=== PATIENT | female | born 1950 | race Caucasian/White ===

== ENCOUNTER 2019-12-08 07:48 | Inpatient (IN) | payer MEDICARE, OTHER, SELFPAY ==
--- NOTE | ~2019-12-08 | XR_ITS ---
EXAMINATION: XR foot LT min 3V EXAM DATE: 12/08/2019 08:37 INDICATION: Left toe infection. Surgery 2 weeks ago. TECHNIQUE: Left foot dorsoplantar, lateral and oblique projections obtained and reviewed. Comparison is made to prior examination from 11/09/2019. FINDINGS: There is surgical arthrodesis of the left first digit. One of the 2 previously seen screws traversing the left first interphalangeal joint has been removed, with persistent lucency within its tract, and also surrounding the other screw (screw tip? Its possible portion of this has been removed ). The plate bridging left first metatarsophalangeal joint is intact, and no focal lucency surrounding t he supporting screws of this fusion. Generalized osteopenia along the proximal phalangeal bases. [employer] sahil second-fifth metatarsal head deformities which could be sequela from avascular necrosis, or possi david surgical at the fifth metatarsal bone, clinical correlation. There are no acute fractures identif ied. There is probably some swelling over the left first toe, but no emphysema. Mid and hindfoot are unremarkable. IMPRESSION: 1. Persistent lucency surrounding remaining screw or screw tip bridging the left first distal interp halangeal joint could be sequela from osteomyelitis. 2. Interval removal of the other screw bridging this joint with persistent lucency in its tract. 3. Intact arthrodesis left first MTP joint with some generalized osteopenia but no definite focal criss cency surrounding supporting screws. 4. 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 Reviewed, dictated and finalized at location B. IMPRESSION: 1. Persistent lucency surrounding remaining screw or screw tip bridging the le ft first distal interphalangeal joint could be sequela from osteomyelitis. 2. Interval removal of the other screw bridging this joint with persistent evonne ency in its tract. 3. Intact arthrodesis left first MTP joint with some generalized osteopenia bu t no definite focal lucency surrounding supporting screws. 4. Second-fifth metatarsal head deformities likely chronic avascular necrosis and/or possibly surgical change at the fifth metatarsal.
[2019-12-08 07:58] VITALS: BP 141/65; PULSE 84; RESP 20; TEMP 36.8; O2SAT 98
--- NOTE | 2019-12-08 08:24 | ED.LOWEXIN ---
HPI - Extremity Injury (Lower) General Chief Complaint: Extremity Injury, Lower Stated Complaint: Dr Diane sent for IV antibiotics Time Seen by Provider: 12/08/19 08:23 Source: patient and RN notes reviewed Mode of arrival: other Limitations: no limitations History of Present Illness HPI Narrative: Pt is a 69 y/o female who presents to the ED with c/o left great toe swelling with pain that began in August [address] Diane. She notes that her pain and swelling has worsened the past 2.5 weeks after having the screw taken out of her toe. Pt rates her pain as a 7/10 and describes her pain as aching and burning. Her pain radiates to her ankle. She has been taking Tylenol #3, but with minimal relief of her sx. She states that her pain is worsened with exertion and walking. Pt notes that she had surgery to straight her left great toe. Pt had two rounds of abx and she was started on Augmentin yesterday. Pt saw Dr. Diane yesterday in office. Pt was recommended to come to the ED by Dr. Diane to receive IV abx. Pt denies N/V/D, chills, fever, and calf swelling. complaint: other (toe swelling) Onset (ago): month(s) (3) Severity scale (1-10): 7 Relieving factors: other (minimally with Tylenol #3) Exacerbating factors: other (exertion, movement) Context: other (recent surgery) Associated symptoms: swelling and ambulatory Other symptoms: none Related Data Home Medications Medication Instructions Recorded Confirmed calcium carbonate 500 mg (1,250 1 tablet PO DAILY 08/31/19 12/08/19 mg)-vitamin D3 200 unit tablet leflunomide 10 mg tablet 10 mg PO EVERY OTHER DAY 08/31/19 12/08/19 methotrexate sodium 2.5 mg tablet 12.5 mg PO WEEKLY 08/31/19 12/08/19 amitriptyline 25 mg PO HS 09/03/19 12/08/19 ascorbic acid (vitamin C) [Vitamin 1 g PO DAILY 09/03/19 12/08/19 C] cyanocobalamin (vitamin B-12) 1,000 mcg PO DAILY 09/03/19 12/08/19 fenofibrate nanocrystallized 145 mg PO DAILY 09/03/19 12/08/19 [Tricor] folic acid 0.5 mg PO DAILY 09/03/19 12/08/19 metaxalone [Skelaxin] 800 mg PO TID PRN 09/03/19 12/08/19 omeprazole 40 mg PO BID 09/03/19 12/08/19 Allergies Allergy/AdvReac Type Severity Reaction Status Date / Time adhesive tape Allergy Severe BLISTERS Verified 12/07/19 13:05 morphine Allergy Severe IV BURNING Verified 12/07/19 13:05 AND RED STREAK UP ARM cefprozil Allergy Unknown Hives Verified 12/07/19 13:05 levofloxacin Allergy Unknown Hives Verified 12/07/19 13:05 meperidine Allergy Unknown Nausea and Verified 12/07/19 13:05 Vomiting nitrofurantoin Allergy Unknown Hives Verified 12/07/19 13:05 VIOXIN Allergy Severe HIVES Uncoded 12/07/19 13:05 Review of Systems Review of Systems: All systems reviewed & are unremarkable except as noted in HPI and below Constitutional: Constitutional: Denies chills and Denies fever(s) Cardiovascular: Cardiovascular: Denies leg edema Gastrointestinal: Gastrointestinal: Denies diarrhea, Denies nausea and Denies vomiting Musculoskeletal: Musculoskeletal: Reports other (left great toe swelling and pain that radiates to her left ankle) PMFSH Past Medical History Medical History (Updated 12/08/19 @ 13:15 by Yancy Conn MD) Aftercare following surgery of the musculoskeletal system Anemia Bilateral knee pain Cataracts, bilateral Cellulitis of left foot Chronic back pain Chronic narcotic use TYLENOL WITH CODEINE X 6 YRS Degenerative joint disease of knee Gastroesophageal reflux disease Hypercholesterolemia Kidney stone Left hallux osteomyelitis Painful orthopaedic hardware Restless leg syndrome Rheumatoid arthritis Scoliosis Seasonal allergies Surgical History Surgical History (Updated 12/08/19 @ 08:42 by Marcella Bui) H/O section H/O colonoscopy History of bunionectomy of right great toe History of orthopedic surgery right foot Hx of cataract removal with insertion of prosthetic lens Family History Family History (Updated 0
[2019-12-08 08:59] LABS: Basophils Percent Auto 0.6 % (0.2-1.2); Eosinophils Absolute Auto 0.1 K/mm3 (0-0.3); Eosinophils Percent Auto 2.9 % (0-4.4); Hematocrit 35.5 % (37.0-47.0); Hemoglobin 11.5 g/dL (12.0-15.0); Lymphocytes Absolute Auto 0.56 K/mm3 (0.9-3.2); Mean Corpuscular HGB Conc 32.4 g/dl (32-36); Mean Corpuscular Hemoglobin 32.6 pg (26-34); Mean Corpuscular Volume 100.6 fl (80-100); Mean Platelet Volume 8.8 fl (7.4-10.4); Monocytes Absolute Auto 0.3 K/mm3 (0.1-0.6); Monocytes Percent Auto 9.6 % (2.6-8.5); Neutrophils Absolute Auto 2.1 K/mm3 (1.3-6.7); Neutrophils Percent Auto 68.9 % (45.5-73.1); Platelet Count Result 230 k/mm3 (150-375); Red Blood Count 3.53 M/mm3 (4.2-5.4); Red Cell Distribution Width 14.1 % (11.5-14.5); White Blood Count 3.1 K/mm3 (4.5-10.0)
[2019-12-08 09:14] LABS: Blood Urea Nitrogen 22 mg/dL (7-17); CRP 2.2 mg/dL (<1.0); Calcium 9.3 mg/dL (8.4-10.2); Carbon Dioxide 28 mmol/L (22-30); Chloride 100 mmol/L (98-107); Estimated CRCL calculation 47 ml/min; Estimated Glomerular Filt Rate > 60; Glucose 86 mg/dL (65-105); Potassium 4.4 mmol/L (3.4-5.0); Sodium 135 mmol/L (137-145)
[2019-12-08 09:34] LABS: Erythrocyte Sedimentation Rate 58 mm/hr (0-20)
[2019-12-08 11:25] VITALS: BP 130/58; PULSE 75; RESP 16; TEMP 36.7; O2SAT 100
[2019-12-08 11:47] VITALS: BMI 23.1
--- NOTE | 2019-12-08 12:14 | ADMGEN ---
This patient, Ale Ramos, was admitted to [facility] Surg Room 316-01 @ 1122. Patient/family oriented to hospital policies and general routines including ID bracelet, bed and alarms, visiting hours, pain management, procedures, bathroom and other care routines, personal items, smoking policy, room service/diet, and visiting hours. Valuables list has been completed. Information on how to activate the Rapid Response Team has been discussed. Patient/Family are encouraged to report perceived risks to care and to ask questions if they do not understand what they are told or what they should do.
[2019-12-08 14:00] VITALS: BP 131/62; PULSE 70; RESP 16; TEMP 36.7; O2SAT 100
--- NOTE | 2019-12-08 15:00 | PM.IMHP ---
H&P: HPI History of Present Illness Chief complaint: Left 1st toe swelling and pain. Narrative: Ale Ramos is a 69-year-old female with rheumatoid arthritis on immunosuppressants who presented to the emergency department earlier this morning from home for evaluation of left great toe swelling and pain. She is status post left hallux interphalangeal joint arthrodesis secondary to rheumatoid deformity 09/09/[address] Diane. She developed postoperative complications including wound dehiscence followed by painful hardware. Approximately 3 weeks ago, some hardware was removed from the left hallux, and more recently she has been having swelling at the site. She was seen by Dr. Diane in the office yesterday, and he wished to admit her for IV antibiotics given edema and erythema however she did decline. She was given a prescription for Augmentin, which she has taken 2 doses, but decided that she should probably come in today for IV antibiotics. She has a constant aching discomfort about the left great toe, radiating somewhat on to the dorsum of the foot. Other than that, she has no complaints and specifically denies fever, chills, sweats, nausea, and vomiting. She has no history of multidrug resistant organisms. Review of Systems Review of Systems: Narrative: Twelve systems were reviewed with pertinent positives and negatives as per HPI. No fever, chills, or sweats. No recent cold or flu symptoms. She denies chest pain shortness of breath. No nausea or vomiting. No diarrhea or dysuria. No history of venous thromboembolism. Except as documented, all other systems were reviewed and are negative. [facility] Past Medical History Medical History Anemia Bilateral knee pain Status post Euflexxa injections in August 2019. Chronic back pain Chronic narcotic use Tylenol with codeine for the past 6 years. Chronic pain syndrome Secondary to rheumatoid arthritis, on long-term opioid therapy with Tylenol with codeine. Degenerative joint disease of knee Gastroesophageal reflux disease History of shingles 2013. Hypercholesterolemia Kidney stone Left hallux osteomyelitis Restless leg syndrome Rheumatoid arthritis Scoliosis Seasonal allergies Surgical History Surgical History H/O section 1984. H/O colonoscopy History of bladder suspension procedure History of bunionectomy of right great toe 2002. History of orthopedic surgery 1: Rheumatoid forefoot reconstruction, right foot with right hallux metatarsophalangeal arthrodesis 07/08/2013. 2: Rheumatoid forefoot reconstruction of the left foot 08/10/2015. 3: Left hallux interphalangeal arthrodesis 09/16/2019. Hx of cataract removal with insertion of prosthetic lens Family History Family History Mother Diabetes mellitus TIA (transient ischemic attack) Father Diabetes mellitus Skin cancer Other Family history of arthritis Family history of cardiovascular disease Social History Social History Social History: Code status: Full code Surrogate decision maker: Irvin Richard, spouse. Smoking packs per day: 1 Smoking cigarettes per day: 20.0 Years smoked: 20 Smoking pack-years: 20.00 Smoking status: Former smoker Tobacco type: cigarettes Alcohol intake: never Substance use: never Living arrangements: with family Additional living arrangements comments: Gaby. Spiritual care concerns: No Agree to blood products: Yes Meds Home Medications and Allergies Home Medications Medication Instructions Recorded Confirmed Type calcium carbonate 500 mg (1,250 1 tablet PO DAILY 08/31/19 12/08/19 History mg)-vitamin D3 200 unit tablet leflunomide 10 mg tablet 10 mg PO EVERY OTHER DAY 08/31/1911/27
[2019-12-08] MEDS: PANTOPRAZOLE 40 MG TABLET PO (17:19)
--- NOTE | 2019-12-08 18:14 | PM.CNOR ---
Assessment and Plan Assessment and plan (1) Cellulitis of left foot: Code(s): L03.116 - Cellulitis of left lower limb Status: Acute Assessment and Plan: Patient well known to me for prior left forefoot surgery, right forefoot surgery with rheumatoid arthritis. Left hallux infection with cellulitis, possible osteomyelitis. She has initially responded well to intravenous antibiotics.Updated history, physical exam and radiographs reviewed with the patient. Interval changes reviewed. Discussed the condition, nature, etiology and course of natural history with the patient. Treatment options including surgical and nonoperative treatment were reviewed. Risks and benefits of each as well as alternatives reviewed. The patient's questions were answered. Conservative treatment ice, compression and elevation. Patient would like to avoid surgery if possible. We will see how she responds to the antibiotics. Would need long course of total antibiotic therapy. If no improvement discussed operative treatment with debridement, hardware removal. (2) Infection of toe: Code(s): L08.9 - Local infection of the skin and subcutaneous tissue, unspecified Status: Acute (3) Left hallux osteomyelitis: Code(s): M86.9 - Osteomyelitis, unspecified Status: Acute (4) Rheumatoid arthritis: Code(s): M06.9 - Rheumatoid arthritis, unspecified Status: Acute History of Present Illness HPI Consult date: 12/08/19 Requesting physician: Monika Boyle MD Consult reason: other ( left foot infection) Chief complaint: Left 1st toe swelling and pain. Narrative: 69-year-old woman who is 3 months status post left hallux interphalangeal arthrodesis for rheumatoid arthritis deformity develop postoperative complications of wound dehiscence followed by painful hardware. Three weeks status post removal of hardware from the left hallux. Presented yesterday to the orthopedic office with 3 day history of increased swelling and redness left hallux. No known injury. Discussion was had at that time for hospital and IV antibiotics but was declined. Started on oral antibiotics. Patient presented to the emergency room today with increasing swelling and concern. She was admitted through the emergency room and started on intravenous antibiotics. She states the pain and swelling have improved since being on the intravenous antibiotic. She denies any fever, chills or systemic complaints. Review of Systems Constitutional: Constitutional: Denies fever(s) Eyes: Eyes: Denies blurry vision ENT: Reports Normal hearing present Cardiovascular: Cardiovascular: Denies chest pain and Denies dyspnea Respiratory: Respiratory: Denies dyspnea and Denies wheezing Gastrointestinal: Gastrointestinal: Denies abdominal pain Genitourinary: Genitourinary: Denies urinary urgency Musculoskeletal: Musculoskeletal: Reports as per HPI, Denies numbness and Reports stiffness (rheumatoid arthritis) Integumentary/Breasts: Skin/Breast: Denies changing lesions and Denies sores Neurologic: Reports Normal hearing present, Denies behavioral changes, Denies confusion, Denies numbness and Denies convulsions Psychiatric: Psychiatric: Denies behavioral changes, Denies confusion and Denies hallucinations Endocrine: Endocrine: Denies heat intolerance Hematologic/Lymphatic: Hematologic/Lymphatic: Denies easy bleeding Allergic/Immunologic: Allergic/Immunologic: Denies wheezing PMFSH Past Medical History Medical History Anemia Bilateral knee pain Status post Euflexxa injections in August 2019. Chronic back pain Chronic narcotic use Tylenol with codeine for the past 6 years. Chronic pain syndrome Secondary to rheumatoid arthritis, on long-term opioid therapy with Tylenol with codeine. Degenerative joint disease of knee Gastroesophageal reflux disease History of shingles 2014. Hypercholesterolem
[2019-12-08] MEDS: AMITRIPTYLINE HCL 25 MG TABLET PO (20:08)
[2019-12-08 22:00] VITALS: BP 116/48; PULSE 71; RESP 20; TEMP 36.6; O2SAT 98
[2019-12-09 06:00] VITALS: BP 116/56; PULSE 78; RESP 16; TEMP 36.6; O2SAT 98
[2019-12-09 07:02] LABS: Estimated CRCL calculation 43 ml/min; Estimated Glomerular Filt Rate 55
[2019-12-09] MEDS: ASCORBIC ACID 500 MG TABLET 1000 MG PO (07:59)
[2019-12-09] MEDS: CYANOCOBALAMIN 1,000 MCG TABLET 1000 MCG PO (07:59)
[2019-12-09] MEDS: FENOFIBRATE NANOCRYSTALLIZED 145 MG TABLET PO (07:59)
[2019-12-09] MEDS: PANTOPRAZOLE 40 MG TABLET PO ×2 (07:59→17:08)
[2019-12-09] MEDS: METAXALONE 800 MG TABLET PO (11:25)
--- NOTE | 2019-12-09 13:41 | PM.PNORT ---
Progress Note: A&P Assessment and Plan (1) Infection of toe: Code(s): L08.9 - Local infection of the skin and subcutaneous tissue, unspecified Status: Acute Assessment and Plan: left hallux cellulitis, status post hallux arthrodesis and removal of hardware continues to show improvement with IV antibiotics. Questioning now cellulitis versus actual osteomyelitis. Continue IV antibiotics, continue conservative treatment. We will discuss with hospitalist team duration of treatment. Subjective Subjective Date/Time Seen: 12/09/19 13:41 For no new complaints. Patient states left foot feels better. Swelling and redness improved. Exam Const: General: No confusion Orientation/consciousness: No confusion HENMT: Head: normal to inspection, normocephalic and atraumatic Eyes: Conjunctivae: conjunctivae normal Sclera: sclerae normal Neck: Neck: supple and nontender Resp: Effort & Inspection: normal respiratory effort and no audible wheezes Cardio: Rate: regular rate Rhythm: regular rhythm Skin: General skin exam: no rashes or lesions noted Neuro: General: No confusion Cranial nerves: Yes Normal hearing present Extrem: Right upper extremity: normal to inspection Left upper extremity: normal to inspection Left lower extremity: foot Details: normal capillary refill, tenderness Location: of the great toe Location: along the entire digit, vascular exam Details: dorsalis pedis pulse present and normal capillary refill and other ( Left hallux and medial foot with less swelling, less tender to palpation. No redness, swelling or tenderness at the ankle or leg); no unusual warmth and no ecchymosis Psych: Affect: normal affect Objective Data Vital Signs Vital Signs: Vital Signs - 24 hr 12/08/19 14:00 12/08/19 22:00 12/09/19 06:00 Temperature 98.0 F 97.9 F 97.9 F Pulse Rate 70 71 78 Respiratory Rate 16 20 16 Blood Pressure 131/62 116/48 L 116/56 L Pulse Oximetry 100 98 98 Intake/Output Intake/Output: Intake & Output 12/06/19 12/07/19 12/08/19 12/09/19 23:59 23:59 23:59 23:59 Intake Total 1010 840 Balance 1010 840 Meds/Results Medications: Active Medications Generic Name Dose Route Start Last Admin Trade Name Freq PRN Reason Stop Dose Admin Acetaminophen/Codeine Phosphate 2 tab 12/08/19 15:19 12/08/19 16:36 Tylenol #3 PO 2 tab Q8H PRN Administration Pain Amitriptyline HCl 25 mg 12/08/19 21:00 12/08/19 20:08 Elavil PO 25 mg HS REJI Administration Ascorbic Acid 1,000 mg 12/09/19 09:00 12/09/19 07:59 Vitamin C PO 1,000 mg DAILY REJI Administration Calcium Carbonate 500 mg 12/09/19 09:00 12/09/19 07:59 Os-Cruz 500 +D Tablet PO 500 mg DAILY REJI Administration Cyanocobalamin 1,000 mcg 12/09/19 09:00 12/09/19 07:59 Vitamin B-12 Tab PO 1,000 mcg DAILY REJI Administration Fenofibrate 145 mg 12/09/19 09:00 12/09/19 07:59 Tricor PO 145 mg DAILY REJI Administration Folic Acid 0.5 mg 12/09/19 09:00 12/09/19 07:59 Folic Acid PO 0.5 mg DAILY REJI Administration Piperacillin/Tazobactam/Dextrose 3.375 gm in 50 mls @ 100 mls/hr 12/08/19 19:00 12/09/19 11:51 Zosyn 3.375 Gm/D5w 50ml Pm IVPB Infused Q6HR REJI Infusion Vancomycin HCl 1,000 mg in 250 mls @ 250 mls/hr 12/09/19 09:00 12/09/19 09:01 Vancomycin 1,000 Mg/D5w 250 Ml IVPB Infused Q24H REJI Infusion Metaxalone 800 mg 12/08/19 15:19 12/09/19 11:25 Skelaxin PO 800 mg TID PRN Administration Muscle Spasm Pantoprazole Sodium 40 mg 12/08/19 17:00 12/09/19 07:59 Protonix PO 40 mg BID REJI Administration Radiology Results: ITS Impressions Foot X-Ray 12/08/19 08:43 IMPRESSION: 1. Persistent lucency surrounding remaining screw or screw tip bridging the left first distal interphalangeal joint could be sequela from osteomyelitis. 2. Interval removal of the other screw bridging this joint with persistent lucency i
[2019-12-09 14:00] VITALS: BP 116/47; PULSE 78; RESP 16; TEMP 36.9; O2SAT 98
--- NOTE | 2019-12-09 14:55 | PM.IMPN ---
Progress Note: A&P Assessment and Plan (1) Cellulitis of left foot: Code(s): L03.116 - Cellulitis of left lower limb Status: Acute Assessment and Plan: Discussed with Dr. Diane today. Patient had received only 1 dose of oral Augmentin the night before presentation. Left great toe significantly improved today. Continue IV Zosyn and vancomycin today. Anticipate probable discharge tomorrow as lies continues to improve. Should be able to discharge home on oral Augmentin as did not have outpatient failure. (2) Left hallux osteomyelitis: Code(s): M86.9 - Osteomyelitis, unspecified Status: Ruled-out Assessment and Plan: Left foot x-ray with persistent lucency surrounding remaining screw or screw tip bridging the left first distal interphalangeal joint could be sequela from osteomyelitis. Discussed with Dr. Diane. Clinically does not appear to be osteomyelitis at this time with such rapid improvement of clinical symptoms. Will not do any further imaging as may not be helpful with recent surgical interventions. (3) Rheumatoid arthritis: Qualifiers: Rheumatoid arthritis location: unspecified site Rheumatoid factor presence: unspecified presence Qualified Code(s): M06.9 - Rheumatoid arthritis, unspecified Code(s): M06.9 - Rheumatoid arthritis, unspecified Status: Acute Assessment and Plan: Home methotrexate and leflunomide on hold with left foot infection. No additional acute issues. (4) Chronic pain syndrome: Code(s): G89.4 - Chronic pain syndrome Status: Acute Assessment and Plan: Result of her rheumatoid arthritis. May continue Tylenol with codeine as needed. (5) DVT prophylaxis: Code(s): Z29.9 - Encounter for prophylactic measures, unspecified Status: Acute Assessment and Plan: SCDs. Time Spent With Patient Time with patient: 15 - 25 minutes Subjective Date/time seen: 12/09/19 14:55 Interval history: Date of Service: 12/09/2019. Admitted with infection of the left great toe. Recent surgical interventions. Patient reports left toe is much better today with decreased swelling and near resolution of redness. No pain in left own. No chest pain. No shortness of breath. No abdominal pain. Review of Systems Review of Systems: Narrative: Doing much better. Constitutional: Constitutional: Denies chills and Denies fever(s) ENT: Denies dysphagia Cardiovascular: Cardiovascular: Denies chest pain Respiratory: Respiratory: Denies dyspnea Gastrointestinal: Gastrointestinal: Denies abdominal pain, Denies nausea and Denies vomiting Genitourinary: Genitourinary: Reports no additional female genitourinary complaints Musculoskeletal: Musculoskeletal: Reports no additional musculoskeletal complaints Integumentary/Breasts: Skin/Breast: Reports erythema (Decreased left great toe) Neurologic: Denies headache(s) Psychiatric: Psychiatric: Denies confusion Exam Narrative: Exam Narrative: Awake and alert. Const: General: no acute distress HENMT: Mouth: Yes moist mucous membranes Neck: Neck: supple Lymphatic: lymphadenopathy not noted Resp: Auscultation: clear to auscultation bilaterally, no rales and no wheezes Cardio: Rate: regular rate Rhythm: regular rhythm GI: Inspection: non-distended GI Palp: Yes Soft to palpation and No Tenderness to palpation present (GI) Auscultation: normal bowel sounds Skin: General skin exam: erythema (Minimal erythema of the left great toe) Neuro: Cognition (Neuro): normal cognition Speech: normal speech Extrem: Left lower extremity: foot (Mild edema left great toe with wrinkling) Psych: Mental Status: mental status grossly normal Affect: normal affect Objective Data Vital Signs Vital Signs: Vital Signs - 24 hr 12/08/19 22:00 12/09/19 06:00 Temperature 97.9 F 97.9 F Pulse Rate 71 78 Respiratory Rate 20 16 Blood Pressure 116/48 L 116/56 L Pulse Oxime
[2019-12-09] MEDS: AMITRIPTYLINE HCL 25 MG TABLET PO (20:35)
[2019-12-09 22:00] VITALS: BP 117/59; PULSE 73; RESP 18; TEMP 36.6; O2SAT 99
[2019-12-10 06:00] VITALS: BP 103/58; PULSE 73; RESP 18; TEMP 36.9; O2SAT 100
[2019-12-10 06:12] LABS: Blood Urea Nitrogen 17 mg/dL (7-17); Calcium 9.7 mg/dL (8.4-10.2); Carbon Dioxide 32 mmol/L (22-30); Chloride 99 mmol/L (98-107); Estimated CRCL calculation 47 ml/min; Estimated Glomerular Filt Rate > 60; Glucose 92 mg/dL (65-105); Potassium 3.6 mmol/L (3.4-5.0); Sodium 136 mmol/L (137-145)
[2019-12-10 08:00] VITALS: PULSE 73; RESP 18; O2SAT 100
--- NOTE | 2019-12-10 08:45 | PM.PNORT ---
Progress Note: A&P Assessment and Plan (1) Infection of toe: Code(s): L08.9 - Local infection of the skin and subcutaneous tissue, unspecified Status: Acute Assessment and Plan: Left hallux infection. Continues to show improvement. No redness or drainage. Discussed finishing intravenous antibiotics today with possible discharge home continuing to improve. We will plan to continue Augmentin b.i.d. while at home. Follow up in orthopedic office in 2 weeks. Subjective Subjective Date/Time Seen: 12/10/19 07:45 Patient awake and alert. Tolerating regular diet. No complaints overnight. No new complaints or problems. States that the left hallux pain the distal aspect has improved. Still some pain over the metatarsal Exam Narrative: Exam Narrative: Awake and alert. Const: General: no acute distress HENMT: Mouth: Yes moist mucous membranes Neck: Neck: supple Lymphatic: lymphadenopathy not noted Resp: Auscultation: clear to auscultation bilaterally, no rales and no wheezes Cardio: Rate: regular rate Rhythm: regular rhythm GI: Inspection: non-distended GI Palp: Yes Soft to palpation and No Tenderness to palpation present (GI) Auscultation: normal bowel sounds Skin: General skin exam: erythema (Minimal erythema of the left great toe) Neuro: Cognition (Neuro): normal cognition Speech: normal speech Extrem: Left lower extremity: foot (Mild edema left great toe with wrinkling) Psych: Mental Status: mental status grossly normal Affect: normal affect Objective Data Vital Signs Vital Signs: Vital Signs - 24 hr 12/09/19 14:00 12/09/19 22:00 12/10/19 06:00 Temperature 98.5 F 97.8 F 98.4 F Pulse Rate 78 73 73 Respiratory Rate 16 18 18 Blood Pressure 116/47 L 117/59 L 103/58 L Pulse Oximetry 98 99 100 Intake/Output Intake/Output: Intake & Output 12/07/19 12/08/19 12/09/19 12/10/19 23:59 23:59 23:59 23:59 Intake Total 1010 1680 150 Output Total 800 2200 Balance 1010 880 -2050 Meds/Results Medications: Active Medications Generic Name Dose Route Start Last Admin Trade Name Freq PRN Reason Stop Dose Admin Acetaminophen/Codeine Phosphate 2 tab 12/08/19 15:19 12/09/19 21:48 Tylenol #3 PO 2 tab Q8H PRN Administration Pain Amitriptyline HCl 25 mg 12/08/19 21:00 12/09/19 20:35 Elavil PO 25 mg HS REJI Administration Ascorbic Acid 1,000 mg 12/09/19 09:00 12/09/19 07:59 Vitamin C PO 1,000 mg DAILY REJI Administration Calcium Carbonate 500 mg 12/09/19 09:00 12/09/19 07:59 Os-Cruz 500 +D Tablet PO 500 mg DAILY REJI Administration Cyanocobalamin 1,000 mcg 12/09/19 09:00 12/09/19 07:59 Vitamin B-12 Tab PO 1,000 mcg DAILY REJI Administration Fenofibrate 145 mg 12/09/19 09:00 12/09/19 07:59 Tricor PO 145 mg DAILY REJI Administration Folic Acid 0.5 mg 12/09/19 09:00 12/09/19 07:59 Folic Acid PO 0.5 mg DAILY REJI Administration Piperacillin/Tazobactam/Dextrose 3.375 gm in 50 mls @ 100 mls/hr 12/08/19 19:00 12/10/19 06:15 Zosyn 3.375 Gm/D5w 50ml Pm IVPB Infused Q6HR REJI Infusion Vancomycin HCl 1,000 mg in 250 mls @ 250 mls/hr 12/09/19 09:00 12/09/19 09:01 Vancomycin 1,000 Mg/D5w 250 Ml IVPB Infused Q24H REJI Infusion Metaxalone 800 mg 12/08/19 15:19 12/09/19 11:25 Skelaxin PO 800 mg TID PRN Administration Muscle Spasm Pantoprazole Sodium 40 mg 12/08/19 17:00 12/09/19 17:08 Protonix PO 40 mg BID REJI Administration Radiology Results: ITS Impressions Foot X-Ray 12/08/19 08:43 IMPRESSION: 1. Persistent lucency surrounding remaining screw or screw tip bridging the left first distal interphalangeal joint could be sequela from osteomyelitis. 2. Interval removal of the other screw bridging this joint with persistent lucency in its tract. 3. Intact arthrodesis left first MTP joint with some generalized osteopenia but no definite focal lucency surrounding sup
--- NOTE | 2019-12-10 08:48 | PM.IMPN ---
Progress Note: A&P Assessment and Plan (1) Cellulitis of left foot: Code(s): L03.116 - Cellulitis of left lower limb Status: Acute Assessment and Plan: Toe much improved. Discussed with Dr. Diane. Has been on IV Zosyn and vancomycin here. Will discharge home today to continue Augmentin 875 mg b.i.d. with an additional 10 days prescribed for 3 weeks of treatment. Will also give dose of Diflucan per patient request. Follow-up with Dr. Diane per his recommendations. (2) Left hallux osteomyelitis: Code(s): M86.9 - Osteomyelitis, unspecified Status: Ruled-out Assessment and Plan: Left foot x-ray with persistent lucency surrounding remaining screw or screw tip bridging the left first distal interphalangeal joint could be sequela from osteomyelitis. Discussed with Dr. Diane. Clinically does not appear to be osteomyelitis at this time with such rapid improvement of clinical symptoms. Will not do any further imaging as may not be helpful with recent surgical interventions. (3) Rheumatoid arthritis: Qualifiers: Rheumatoid arthritis location: unspecified site Rheumatoid factor presence: unspecified presence Qualified Code(s): M06.9 - Rheumatoid arthritis, unspecified Code(s): M06.9 - Rheumatoid arthritis, unspecified Status: Acute Assessment and Plan: Home methotrexate and leflunomide on hold with left foot infection. Resume medications when infection completely cleared. No additional acute issues. (4) Chronic pain syndrome: Code(s): G89.4 - Chronic pain syndrome Status: Acute Assessment and Plan: Result of her rheumatoid arthritis. May continue Tylenol with codeine as needed. (5) DVT prophylaxis: Code(s): Z29.9 - Encounter for prophylactic measures, unspecified Status: Acute Assessment and Plan: SCDs. Time Spent With Patient Time with patient: 15 - 25 minutes Subjective Date/time seen: 12/10/19 08:48 Interval history: Date of Service: 12/10/2019. Admitted with infection of the left great toe. Recent surgical interventions. Left toe continues to improve this morning. No other symptoms. No chest pain. No shortness of breath. No abdominal pain. Review of Systems Constitutional: Constitutional: Denies chills and Denies fever(s) ENT: Denies dysphagia Cardiovascular: Cardiovascular: Denies chest pain Respiratory: Respiratory: Denies dyspnea Gastrointestinal: Gastrointestinal: Denies abdominal pain, Denies dysphagia, Denies nausea and Denies vomiting Genitourinary: Genitourinary: Reports no additional female genitourinary complaints Musculoskeletal: Comments: pain base of left great toe Integumentary/Breasts: Skin/Breast: Reports erythema (Decreased left great toe) Neurologic: Denies headache(s) Psychiatric: Psychiatric: Denies confusion Exam Narrative: Exam Narrative: Awake and alert. Const: General: no acute distress HENMT: Mouth: Yes moist mucous membranes Neck: Neck: supple Lymphatic: lymphadenopathy not noted Resp: Auscultation: clear to auscultation bilaterally, no rales and no wheezes Cardio: Rate: regular rate Rhythm: regular rhythm GI: Inspection: non-distended Auscultation: normal bowel sounds Skin: General skin exam: erythema (very minimal erythema of the left great toe) Neuro: General: No confusion Cognition (Neuro): normal cognition Speech: normal speech Extrem: Left lower extremity: foot (Mild edema left great toe with wrinkling) Psych: Mental Status: mental status grossly normal Affect: normal affect Objective Data Vital Signs Vital Signs: Vital Signs - 24 hr 12/09/19 14:00 12/09/19 22:00 12/10/19 06:00 Temperature 98.5 F 97.8 F 98.4 F Pulse Rate 78 73 73 Respiratory Rate 16 18 18 Blood Pressure 116/47 L 117/59 L 103/58 L Pulse Oximetry 98 99 100 Intake/Output Intake/Output: Intake & Output 12/07/19 12/08/19 12/09/19 12/10/19 23
[2019-12-10] MEDS: ASCORBIC ACID 500 MG TABLET 1000 MG PO (08:54)
[2019-12-10] MEDS: CYANOCOBALAMIN 1,000 MCG TABLET 1000 MCG PO (08:55)
[2019-12-10] MEDS: FENOFIBRATE NANOCRYSTALLIZED 145 MG TABLET PO (08:56)
[2019-12-10] MEDS: PANTOPRAZOLE 40 MG TABLET PO (08:56)
[2019-12-10] MEDS: METAXALONE 800 MG TABLET PO (08:58)
--- NOTE | 2019-12-10 10:11 | PC.NURSE ---
REVIEWED D/C INSTRUCTEIONS WITH PT AND PT HAS SURGICAL BOOT AT HOME FOR AMBULATION.
--- NOTE | 2019-12-10 16:26 | PM.DS ---
DS: Diagnosis Admitting Diagnosis Admitting Diagnosis: Cellulitis of left lower limb Discharge Diagnosis (1) Cellulitis of left foot: Code(s): L03.116 - Cellulitis of left lower limb Status: Acute (2) Rheumatoid arthritis: Qualifiers: Rheumatoid arthritis location: unspecified site Rheumatoid factor presence: unspecified presence Qualified Code(s): M06.9 - Rheumatoid arthritis, unspecified Code(s): M06.9 - Rheumatoid arthritis, unspecified Status: Acute (3) Chronic pain syndrome: Code(s): G89.4 - Chronic pain syndrome Status: Acute DS: Summary Hospital Course Reason for hospitalization: Left great toe swelling and pain. Hospital Course: Date of Service of Discharge: December 10, 2019. History of Present Illness: Patient is a 69-year-old woman with known rheumatoid arthritis on immunosuppressants who presented to the emergency department from home for evaluation of left great toe swelling and pain. She is status post left hallux interphalangeal joint arthrodesis secondary to rheumatoid deformity on 09/09/[address] Diane. She developed postoperative complications including wound dehiscence followed by painful hardware. Approximately 3 weeks ago, some hardware was removed from the left hallux and more recently she has been having swelling at the site. She was seen by Dr. Diane in the office on the day prior to presentation. They did discuss admission for IV antibiotics but patient declined with prescription for Augmentin given. She did take 2 doses prior to presentation. She reports a constant aching in the left great toe radiating to the dorsum of the foot. No fever, chills or sweats. No chest pain. No shortness of breath. No nausea or vomiting. In the emergency room, findings were consistent with cellulitis of the left great toe with possible osteomyelitis. As a result, she was admitted for further evaluation and treatment. Course in Hospital: She was admitted to the medical floor where she remained for the duration of her stay. She was started on IV vancomycin and Zosyn. Patient had rapid improvement of erythema within the 1st 24 hours. Imaging done in the emergency room with some concern for osteomyelitis but clinically not consistent with such. No additional imaging including MRI was done given recent surgery. Patient continued to be monitored on IV antibiotics. WBC was low at 3.1 on admission but not read checked. She had no fever or chills. Erythema was nearly resolved by the morning of December 10, 2019 with patient felt stable enough to transition to oral antibiotics with discharge. Her home leflunomide and methotrexate were held with patient instructed to only resume once infection is cleared. She did continue other home medications including Tylenol with codeine as needed for pain. She had no other acute issues during her stay. With patient improved, she was discharged home on December 10, 2019. Status at Discharge Cognitive/behavioral status at discharge: Stable. Functional status at discharge: independent ambulation Overall status at discharge: patient is back to baseline Time Spent with Patient Time attestation: Total time spent providing and/or coordinating discharge services: 35 minutes. Time spent: Greater than 30 minutes Exam Narrative: Exam Narrative: Vital Signs Temp Pulse Resp BP Pulse Ox 98.2 F 84 20 141/65 H 98 12/08/19 07:58 12/08/19 07:58 12/08/19 07:58 12/08/19 07:58 12/08/19 07:58 Temp Pulse Resp BP Pulse Ox 98.4 F 73 18 103/58 L 100 12/10/19 06:00 12/10/19 08:00 12/10/19 08:00 12/10/19 06:00 12/10/19 08:00 Awake and alert. Const: General: no acut
== END 2019-12-10 11:45 | disposition home or self-care (01) | DRG 603 ==
LOC: ANHED 09:57 → ANH3MEDSUR 10:25
PROVIDERS: Physician Assistant; Admitting Provider Family Medicine; Emergency Provider Emergency Medicine; PCP Family Medicine; Visit Provider Hospitalist
DX: L03.116 Cellulitis of left lower limb (principal); M06.9 Rheumatoid arthritis, unspecified; G89.4 Chronic pain syndrome; K21.9 Gastro-esophageal reflux disease without esophagitis; M41.9 Scoliosis, unspecified; G25.81 Restless legs syndrome; E78.00 Pure hypercholesterolemia, unspecified; M17.10 Unilateral primary osteoarthritis, unspecified knee; D64.9 Anemia, unspecified; Z98.42 Cataract extraction status, left eye; Z98.41 Cataract extraction status, right eye; Z87.891 Personal history of nicotine dependence
CPT/HCPCS: 36415; 73630; 80048; 82565; 85025; 85652; 86140; 87040; 96365; 96366; 96367; 99285; A9270; G0378; J2543; J3370

== ENCOUNTER 2020-10-23 00:32 | Outpatient (CLI) | payer MEDICARE, OTHER, SELFPAY ==
[2020-10-23 18:26] LABS: SARS-CoV-2 RNA PCR Negative
== END 2020-10-23 00:33 | disposition home or self-care (01) ==
LOC: ANHCOVIDDT 00:32
PROVIDERS: PCP Family Medicine; Visit Provider Orthopaedic Surgery
DX: Z01.812 Encounter for preprocedural laboratory examination (principal); Z20.822 Contact with and (suspected) exposure to COVID-19
CPT/HCPCS: C9803; U0003; U0005

== ENCOUNTER 2020-10-26 01:20 | Day surgery (SDC) | payer MEDICARE, OTHER, SELFPAY ==
[2020-10-17 10:57] VITALS: BMI 23.6
--- NOTE | 2020-10-25 13:45 | WPDANESEPPF ---
Anes - Initial Pre Proc Eval Procedure: Operation Date: 10/26/20 08:00 Proposed Procedures p Left Foot Removal Of Hardware - Quan Diane MD s Left Second Toe Tenotomy - Quan Diane MD Date/Time: 10/25/20 13:45 Surgeon: Quan Diane MD Pre Op Diagnosis: left painful orthopedic hardware, Left 2nd Mallet Patient Data Age: 69 Gender: F Height: 1.69 m Weight: 67.5 kg Allergies Allergy/AdvReac Type Severity Reaction Status Date / Time adhesive tape Allergy Severe BLISTERS Verified 10/26/20 06:28 morphine Allergy Severe IV BURNING Verified 10/26/20 06:28 AND RED STREAK UP ARM cefprozil Allergy Unknown Hives Verified 10/26/20 06:28 levofloxacin Allergy Unknown Hives Verified 10/26/20 06:28 meperidine Allergy Unknown Nausea and Verified 10/26/20 06:28 Vomiting nitrofurantoin Allergy Unknown Hives Verified 10/26/20 06:28 VIOXIN Allergy Severe HIVES Uncoded 10/26/20 06:28 Home Medications Medication Instructions Recorded Confirmed Type calcium carbonate 500 mg (1,250 1 tablet PO DAILY 08/31/19 10/26/20 History mg)-vitamin D3 200 unit tablet methotrexate sodium 2.5 mg tablet 12.5 mg PO WEEKLY 08/31/19 10/26/20 History amitriptyline 25 mg PO HS 09/03/19 10/26/20 History ascorbic acid (vitamin C) [Vitamin 1 g PO DAILY 09/03/19 10/26/20 History C] cyanocobalamin (vitamin B-12) 1,000 mcg PO DAILY 09/03/19 10/26/20 History folic acid 0.5 mg PO DAILY 09/03/19 10/26/20 History metaxalone [Skelaxin] 800 mg PO TID PRN 09/03/19 10/26/20 History omeprazole 40 mg PO BID 09/03/19 10/26/20 History acetaminophen-codeine 2 tablet PO Q8H PRN #20 tablet 09/16/19 10/26/20 Rx [Tylenol-Codeine #3] ondansetron HCl [Zofran] 4 mg PO PRN PRN #12 tablet 09/16/19 10/26/20 Rx L.rhamn A-191-L.ac-B.sky-B.edel 1 cap PO QAM 10/17/20 10/26/20 History [Probiotic] prednisone 5 mg PO DAILY 10/17/20 10/26/20 History Patient hx anesthesia problems: none Family hx anesthesia problems: none PMFSH Past Medical History Medical History (Updated 10/18/20 @ 12:23 by Quan Diane MD) Acquired mallet toe of left foot Anemia Bilateral knee pain Status post Euflexxa injections in August 2019. Chronic back pain Chronic narcotic use Tylenol with codeine for the past 6 years. Chronic pain syndrome Secondary to rheumatoid arthritis, on long-term opioid therapy with Tylenol with codeine. Degenerative joint disease of knee Gastroesophageal reflux disease History of shingles 2013. Hypercholesterolemia Kidney stone Left hallux osteomyelitis Nonunion after arthrodesis Restless leg syndrome Rheumatoid arthritis Scoliosis Seasonal allergies Surgical History Surgical History H/O section 1984. H/O colonoscopy History of bladder suspension procedure History of bunionectomy of right great toe 2002. History of orthopedic surgery 1: Rheumatoid forefoot reconstruction, right foot with right hallux metatarsophalangeal arthrodesis 07/08/2013. 2: Rheumatoid forefoot reconstruction of the left foot 08/10/2015. 3: Left hallux interphalangeal arthrodesis 09/16/2019. Hx of cataract removal with insertion of prosthetic lens Family History Family History Mother Diabetes mellitus TIA (transient ischemic attack) Father Diabetes mellitus Skin cancer Other Family history of arthritis Family history of cardiovascular disease Social History Social History Social History: Code status: Full code Surrogate decision maker: Irvin Ramos, spouse. Smoking packs per day: 0.5 Smoking cigarettes per day: 10.0 Years smoked: 20 Smoking pack-years: 10.00 Tobacco type: cigarettes Second hand tobacco smoke exposure: No Additional smoking assessment comments: QUITE 1979 Alcohol intake: current Drinks per week: 1
[2020-10-26] VITALS (9 sets, daily range): BP systolic 107–148; BP diastolic 66–88; PULSE 68–85; RESP 10–18; TEMP 36.4–37.2; O2SAT 98–100; BMI 23.6
--- NOTE | ~2020-10-26 | XR_ITS ---
EXAMINATION: XR surgery orthopedic DATE: 10/26/2020 11:11 INDICATION: Orthopedic instrumentation removal from the left foot TECHNIQUE: 3 fluoroscopic spot images of the left forefoot were obtained during procedure performed tom Diane. Radiologist was not present for the imaging or procedure. The amount of fluoroscopy ti me used during this procedure was 1.1 minutes. COMPARISON: 10/18/2020 FINDINGS: Initial image demonstrates a first metatarsophalangeal arthrodesis with oblique compression screw and dorsal plate and screw fixation with solid fusion of the joint space. There has also been prior oste otomies at the second-fifth metatarsals and of the heads of the second and third proximal phalanges. There is joint space widening at the first interphalangeal joint which is spanned by a compression sc rew. There is osteolysis surrounding the screw as well as involving the bone on either side of the ri ght knee joint space consistent with failed arthrodesis and further concerning for septic arthritis a nd osteomyelitis. Subsequent images demonstrate removal of the previously described instrumentation s panning both the first metatarsophalangeal and interphalangeal joints. There is been placement of 2 a xially directed fixation pins which extend from the tuft of the distal phalanx across the proximal ph alanx and into the first metatarsal one with tip at the level of the mid diaphysis the second contain ing further across the first tarsal metatarsal joint into the medial cuneiform. IMPRESSION: 1. Removal of fixation instrumentation and placement of new fixation pins spanning a solidly fused fi rst metatarsophalangeal arthrodesis in still unfused first interphalangeal and attempted arthrodesis. 2. Osteolysis at both sides of the unfused and widened first interphalangeal joint space concerning f or osteomyelitis. See procedure note for further detail. Reviewed, dictated and finalized at location B. [employer] IMPRESSION: 1. Removal of fixation instrumentation and placement of new fixation pins mallory ing a solidly fused first metatarsophalangeal arthrodesis in still unfused firs t interphalangeal and attempted arthrodesis. 2. Osteolysis at both sides of the unfused and widened first interphalangeal jeanmarie int space concerning for osteomyelitis. See procedure note for further detail.
[2020-10-26] MEDS: LACTATED RINGERS 1,000 ML 30 ML IV CONT (06:45)
[2020-10-26] MEDS: KETOROLAC 15 MG/ML VIAL (*BKC) IV PUSH (06:45)
[2020-10-26] MEDS: ACETAMINOPHEN 500 MG TABLET 1000 MG PO (06:45)
--- NOTE | 2020-10-26 07:22 | WPDHPUPDATE1 ---
History and Physical Update Update Date/Time: 10/26/20 07:22 History and Physical has been reviewed, including an updated exam of the patient. There are NO changes in the patient's condition. Covid test negative. Risks, benefits, and alternatives have been discussed and questions answered. Patient agrees to proceed with procedure.
[2020-10-26] MEDS: CLINDAMYCIN 900 MG/D5W 50 ML 900 MG/50 ML PIGGYBACK 50 MG IVPB (07:29)
[2020-10-26] MEDS: BUPIVACAINE HCL 0.5% PF 30 ML VIAL INFILTRATE (07:44)
[2020-10-26] MEDS: fentaNYL CITRATE INJ (*CRX) 100 MCG/2 ML VIAL 25 MCG IV PUSH ×2 (08:51→09:25)
--- NOTE | 2020-10-26 08:54 | P.OP_ITS ---
Procedure Note - Detailed Date of procedure: 10/26/20 Pre-op diagnosis: left painful orthopedic hardware, Left 2nd Mallet Nonunion hallux arthrodesis Post-op diagnosis: same Procedure performed: Removal of hardware left hallux, flexor tenotomy 2nd toe, revision arthrodesis hallux Description of procedure: Indications: Patient is a 69-year-old woman with rheumatoid arthritis who underwent previous left forefoot reconstruction. Had failure of the hardware and nonunion as well as a new development of mallet 2nd toe deformity. She presents for operative treatment. What was done: Patient identified in the preoperative holding. Informed consent given. Operative extremity marked. Patient received intravenous antibiotics. Patient brought to the operating room where underwent general anesthetic by anesthesia team. Positioned supine on operating room table. Time-out performed confirming the patient, site of the surgery and the plan. Left foot prepped draped usual sterile surgical fashion with ChloraPrep skin solution. Foot and ankle exsanguinated and a calf tourniquet inflated to 225 mmHg. Previous dorsal longitudinal incision over the hallux metatarsophalangeal joint utilized and made with a 15 blade knife. Hemostasis controlled electrocautery. Dissection carried down to the dorsal plate and screws which were removed. Dissection then carried laterally to the lag screw which was identified and removed. Small incision made in the distal hallux to remove the longitudinal lag screw. Wounds thoroughly irrigated with antibiotic solution. Fascia repaired with 3 Monocryl interrupted suture and skin repaired with 4 O nylon suture. Interphalangeal joint of the hallux noted to be unstable. Arthrodesis performed with 2 mm threaded and 1.8 mm smooth pins placed longitudinally. Image intens ification confirmed alignment and placement of the hardware. Second toe then addressed. A 15 blade knife used to transect the distal portion of the deep flexor tenotomy. Good release of mallet deformity noted. Wounds thoroughly irrigated closed with 4 nylon interrupted suture. Sterile dressing applied. The patient was then woken from anesthesia, extubated and taken to the recovery room in stable condition. All sponge, needle, instrument counts were correct at the end of the case. Implants: Removed: Integra hallux MTP fusion plate with screws, 3.0 mm lag screw x2 Implanted 2 mm threaded pin x1, 1.8 mm smooth pin x1 Anesthesia: GLMA Surgeon: Quan Diane MD Factory Expert: 1st assistant account manager Estimated blood loss (mL): 5 Tourniquet time (min): 50 Drains: No Packing: No Pathology: none sent Complications: None Condition: stable Disposition: PACU
[2020-10-26] MEDS: oxyCODONE HCL (*CRX) 5 MG TAB IR PO (10:09)
== END 2020-10-26 11:00 | disposition home or self-care (01) ==
PROVIDERS: PCP Family Medicine; Visit Provider Orthopaedic Surgery
PROC: (CPT 28232; principal; 2020-10-26 08:00)
PROC: (CPT 28750; 2020-10-26 08:00)
DX: M96.0 Pseudarthrosis after fusion or arthrodesis (principal); T84.84XA Pain due to internal orthopedic prosthetic devices, implants and grafts, initial encounter; Y83.8 Other surgical procedures as the cause of abnormal reaction of the patient, or of later complication, without mention of misadventure at the time of the procedure; M06.872 Other specified rheumatoid arthritis, left ankle and foot; M06.871 Other specified rheumatoid arthritis, right ankle and foot; M20.5X2 Other deformities of toe(s) (acquired), left foot; D64.9 Anemia, unspecified; M17.0 Bilateral primary osteoarthritis of knee; K21.9 Gastro-esophageal reflux disease without esophagitis; E78.00 Pure hypercholesterolemia, unspecified; G25.81 Restless legs syndrome; Z87.442 Personal history of urinary calculi; F17.210 Nicotine dependence, cigarettes, uncomplicated
CPT/HCPCS: 28232; 28750; 20680; A9270; C1713; J1200; J1885; J2405; J2704; J3010; J7120